=== PATIENT | male | born 1955 | race Caucasian/White ===

== ENCOUNTER 2021-10-14 07:27 | Outpatient (CLI) | payer MEDICARE, MEDICAID, SELFPAY ==
--- NOTE | ~2021-10-14 | MR_ITS ---
EXAMINATION: MR abdomen wo/w con DATE: 10/14/2021 08:42 INDICATION: Liver mass. TECHNIQUE: Magnetic resonance imaging (MRI) of the abdomen was performed without and with 20 mL Multi [place] intravenous contrast. COMPARISON: None. FINDINGS: There is diffuse hepatic steatosis. There are cysts in the liver measuring up to 2.1 cm. The gallblad amber is normal. 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 The spleen and adrenal glands are normal . There are cysts in the kidneys measuring up to 14 mm in the left. There are no pathologically enlar ged lymph nodes. There is no free intraperitoneal fluid. IMPRESSION: 1. Benign cysts in the liver. 2. Diffuse hepatic steatosis. Reviewed, dictated and finalized at location A.
== END 2021-10-14 07:28 | disposition home or self-care (01) ==
PROVIDERS: PCP Family Medicine; Visit Provider Family Medicine
DX: K76.89 Other specified diseases of liver (principal); K76.0 Fatty (change of) liver, not elsewhere classified
CPT/HCPCS: 74183; A9577

== ENCOUNTER 2024-07-20 14:39 | Outpatient (CLI) | payer MEDICARE, MEDICAID, SELFPAY ==
--- NOTE | ~2024-07-20 | US_ITS ---
Left neck ULTRASOUND (Doppler ultrasound interrogation techniques used as needed for this exam.) Ordering provider: Maira Bryant, [employer]ODUCTION MANUFACTURING WORKER History: . submental lymphadenopathy . Comparison: None. FINDINGS/impression: Enlarged lymph node in the palpable area inferior to the left ear measuring 4.4 x 2.4 x 2.5 cm. Other several small superficial lymph nodes are seen. Reviewed, dictated and finalized at location A.
--- OUTSIDE RECORDS SUMMARY | 2024-07-20 15:49 | XMS_ITS | Data Portability ---
Author Organization [facility] [employer], Main Office Address [address] [place] [address] Assessment No assessment recorded. Plan of Treatment Reminders Order Date Submit Date Provider Last Modified By Organization Details Last Modified Time Details Appointments Follow Up 15 2024 09:00A SHAYNE Mcleod Not available Not available Not available Lab opiates, quantitat jean, urine 2024 025 [facility], [address] , [place], [address], 06/10/2024 08:10:44 glycohemo globin, total, blood 2024 025 [facility] (Lab), [address] [place], [address], 03/12/2024 04:16:58 lipid panel, serum 2024 025 [facility] (Lab), [address] [place], [address], 03/12/2024 04:16:58 CMP, serum or plasma 2024 025 [facility] (Lab), [address] [place], [address], 03/12/2024 04:16:58 vitamin B12, serum 2024 025 [facility] (Lab), [address] [place], [address], 03/12/2024 04:16:58 CBC w/ auto diff 2024 025 [facility] (Lab), [address] [place], [address], 03/12/2024 04:16:58 TSH, serum or plasma 2024 025 [facility] (Lab), [address] [place], [address], 03/12/2024 04:16:59 vitamin D, 25-hydrox y, total, serum 2024 025 [facility] (Lab), [address] [place], [address], 03/12/2024 04:16:59 drug of abuse panel, urine 2023 024 [facility] (Lab), [address] [place], [address], 11/12/2023 23:35:39 noninvasi ve colorecta l cancer DNA + occult blood screening , QL, stool 2023 [facility]24 [email or web address]), [address], [address], [place], [address], 09/27/2023 08:11:08 Referral None recorded. Procedures None recorded. Surgeries None recorded. Imaging US, head + neck, soft tissue - Please call patient to schedule. 2024 025 [email or web address] [facility], [address], [place], [address], 07/09/2024 10:13:12 Medication Orders hydrocodo ne 10 mg-acetam inophen 325 mg tablet 2024 025 [facility] #45350, [address] [facility], [place], [place], [id number], 06/03/2024 15:12:17 Mounjaro 5 mg/0.5 mL subcutane ous pen injector 2024 [facility] #21632, [address], [place], [id number], 06/03/2024 15:12:14 alendrona te 70 mg tablet 2024 [facility] #36006, [address], [place], [id number], 03/11/2024 15:38:11 Calcium 600 + D(3) 600 mg-10 mcg (400 unit) tablet 2024 [facility] #48321, [address], [place], [id number], 06/03/2024 14:54:33 gabapenti n 300 mg capsule 2024 [facility] #37770, [address], [place], [id number], 03/11/2024 15:38:12 hydrocodo ne 10 mg-acetam inophen 325 mg tablet 2024 [facility] #72934, [address], [place], [id number], 03/11/2024 16:03:28 OneTouch Ultra Test strips 2024 [facility] #16961, [address], [place], [id number], 03/11/2024 15:38:09 gabapenti n 100 mg capsule 2023 024 [facility] #46218, [address], [place], [id number], 06/03/2024 14:46:14 cyclobenz aprine 10 mg tablet 2023 024 [facility] #63977, [address], [place], [id number], 03/11/2024 15:32:53 hydrocodo ne 10 mg-acetam inophen 325 mg tablet 2023 024 [facility] #86003, [address], [place], [id number], 12/10/2023 11:46:31 meloxicam 7.5 mg tablet 2023 [facility] #43770, [address], [place], [id number], 09/20/2023 10:34:26 Mounjaro 2.5 mg/0.5 mL subcutane ous pen injector 2023 [facility] #48600, [address] [place] [address], [id number], 03/11/2024 15:11:44 [employer]osp[employer] 160 mcg-9mcg- 4.8mcg/ac tuation HFA aerosol inhaler 2023 024 [facility] #37017, [address], [place], [id number], 09/20/2023 10:34:26 Patient TargetsNo targets recorded. Patient InstructionsNo instructions recorded. Reason for Referral None Reported. Results Created Date Observation Date Name Description Value Unit Range Abnormal Flag Note LastModifiedBy Organization Detail LastModifiedTime 09/26/19 24 09/26/2023 COLOG UARD cologuard result reportable NEGATI VE negati ve normal NEGAT JEAN TEST RESUL T. A negat jean Colog uard resul t indic ates a low likel ihood that a color ectal cance r (CRC) or advan jenny adeno ma (sohail omato us polyp s with more advan jenny pre-m align ant featu res) is prese nt. The [facility] that a perso n with a negat jean Colog uard test has a color ectal cance r is less than 1 in 1500 (nega tive predi ctive value >99.9 %) or has an advan jenny adeno ma is less than 5.3% (nega tive predi ctive value 94.7% ). These data are based on a prosp ectiv e cross -sect ional study of 10,00 0 indiv idual s at [facility] risk for color ectal cance r who were scree radha with both Colog uard and colon oscop y. (Zane Dubon et al, N Engl J Med 2014; 370(1 4):12 86-12 97) The niecy l value (refe rence range ) for this assay is negat jean. COLOG UARD RE-SC REEROMI NG RECOM MENDA TION: Perio dic color ectal cance r scree karlie is an impor tant part of preve ntive healt hcare for asymp tomat ic indiv idual s at [place] [facility] risk for color ectal cance r. Follo wing a negat jean Colog uard resul t, the Ameri can Cance r Socie ty and U.S. Multi -Soci ety Task Force scree karlie guide lines recom mend a Colog uard re-sc reeni ng [place] of 3 years . Refer ences : Ameri can Cance r Socie ty Guide line for Color ectal Cance r Scree karlie: https ://sagrario w.can cer.o rg/ca ncer/ colon -rect al-ca ncer/ detec tion- diagn osis- stagi ng/ac s-rec ommen datio ns.ht ml.; Jorje BREAUX, Alejandra lanier CR, Cornel BrothersK, Color ectal Cance r Scree karlie: Recom menda tions for Physi cians and Patie nts from the U.S. Multi -Soci ety Task Force on Color ectal Cance r Screrafia ziegler , Am Deneen oliverog y 2017; 112:1 016-1 030. TEST DESCR IPTIO N: [place] site algor ithmi c frances sis of stool DNA-b ioarjun kers with hemog lobin immun oassa y. Quant itati ve value s of indiv idual bioma rkers are not repor table and are not assoc iated with indiv idual bioma rker resul t refer ence range s. Colog uard is inten ded for color ectal cance r scree karlie of adult s of eithe r sex, 45 years or older , who are [facility] for color ectal cance r (CRC) . Colog uard has been appro opal for use by the U.S. FDA. The perfo rmanc e of Colog uard was estab lishe d in a cross secti onal study of [facility] adult s aged 50-84 . Colog uard perfo rmanc e in patie nts ages 45 to 49 years was estim ated by sub-g roup frances sis of near- age group s. Colon oscop ies perfo rmed for a posit jean resul t may find as the most clini trinh signi toro stephens n: color ectal cance r [4.0% ], advan jenny adeno ma (incl uding sessi le kayli abigail polyp s great er than or equal to 1cm diame ter) [20%] or non- advan jenny adeno ma [31%] ; or no color ectal neopl marcelino [45%] . These estim ates are deriv ed from a prosp ectiv e cross -sect ional scree karlie study of 10,00 0 indiv idual s at [facility] risk for color ectal cance r who were scree radha with both Colog uard and colon oscop y. (Zane Leung al, N Engl J Med 2014; 370(1 4):12 86-12 97.) Colog uard may produ ce a false negat jean or false posit jean resul t (no color ectal cance r or preca ncero us polyp prese nt at colon oscop y follo w up). A negat jean Colog uard test resul t does not guara ntee the absen ce of CRC or advan jenny adeno ma (pre- cance r). The curre nt Colog uard scree [place]arlie [place] is every 3 years . (Amer ican Cance r Socie ty and U.S. Multi -Soci ety Task Force ). Colog uard perfo rmanc e data in a ,00 0 patie nt pivot al study using colon oscop y as the refer ence metho d can be acces sed at the follo wing locat ion: www.e xactl abs.c om/re sulleeanna . Addit ional descr iptio n of the Colog uard test proce ss, warni ngs and preca ution s can be found at www.c bubba josue.c om. Not Available [facility] (Cologuard Orders Only) [address], [place], [address], 09/30/2023 18:32:22 Result Notes None recorded. Problems Name Problem SNOMED Code Status Onset Date Resolution Date Notes Provider Name and Address Organization Details Recorded Time Pain in lower limb 20963513 Active Not Available [facility] 4 04:23:31 Tobacco user 758253156 Active Not Available [facility] 4 04:23:31 Chronic back pain 619297986 Active Not Available [facility] 4 04:23:31 Chronic obstructiv e pulmonary disease 00611124 Active Not Available [facility] 4 04:23:31 Nocturia 070845261 Active Not Available [facility] 4 04:23:31 Constipati on 69817026 Active Not Available [facility] 4 04:23:31 Abdominal pain 84549517 Active Not Available [facility] 4 04:23:31 Dyspnea 649372585 Active Not Available [facility] 4 04:23:31 Impaired exercise tolerance 514833641 Active Not Available [facility] 4 04:23:31 Low back pain 451968434 Active Not Available [facility] 4 04:23:31 Type 2 diabetes mellitus without complicati on 960809850 Active 2021 Not Available [facility] 4 04:23:31 Blood in urine 51527508 Active Not Available [facility] 4 04:23:31 Vitamin D deficiency 05383418 Active Not Available [facility] 4 04:23:31 Depressive disorder 09056013 Active Not Available [facility] 4 04:23:31 Ventral incisional hernia 224468382 Active Not Available [facility] 4 04:23:31 History of calculus of kidney 243187972 Active Not Available [facility] 4 04:23:31 Foot pain 34941019 Active Not Available [facility] 4 04:23:31 Hyperlipid emia 41200822 Active Not Available [facility] 4 04:23:31 Hypercalci uria 50232217 Active Not Available [facility] 4 04:23:31 Urethral stricture 28399309 Active Not Available [facility] 4 04:23:31 Degenerati on of interverte bral disc 74080670 Active Not Available [facility] 4 04:23:31 Fatigue 51498846 Active Not Available [facility] 4 04:23:31 Urolithias is 38570643 Active Not Available [facility] 4 04:23:31 Diabetes mellitus 91350052 Completed 202203/11/2024 SHAYNE Bach [address], [address], [place], [address] , [employer] 5 15:27:13 Skin lesion 36135874 Active 2022 Not Available [facility] 4 04:23:31 Vertigo 731513585 Active 2023 Cortney Drew MD [address], [address], [place], [address] , [employer] 4 10:40:53 Spinal stenosis of lumbar region 11602960 Active 2023 SHAYNE Bach [address] [facility], [address] [place] [address], [place], [address] , [employer] 4 10:22:04 Urge incontinen ce of urine 44441629 Active 2023 SHAYNE Bach [address] [facility], [place] [place] [address], [place], [address] , [employer] [facility] 4 12:59:03 Osteoporos is 00714473 Active 2024 ABDULLAHI BachP [address] [facility], [place] [place] [address], [place], [address] , [employer] 5 15:36:37 Submental lymphadeno brandyn 225307321 Active 2024 SHAYNE Bach [address] [facility], [address] [place] [address], [place], [address] , [employer] 5 15:03:59 Notes:Medical History: Nicot ine dependence Anxiety/Depression Rhinitis Obesity Bilateral PE on Xarelto 04/04 Mild RVE Hypertension with LVH EF 45% Mixed hyperlipidemia T2DM Urolithiasis from hypercalciuria Urethral stricture BPH Vit D deficiency Low back pain PVD Some problems listed in Documents: #[id number], #[id number], #[id number] could not be added to this patient's chart. Please review these documents and add these problems to the patient's chart manually as needed. Problem Notes None recorded. Procedures Surgical History Date Name Laterality Status Provider Name and Address Organization Details Recorded Time 10/09/2022 Shave Biopsy completed Cortney Drew MD [address] [facility], [address] [place] [address], [place], [address], [employer] 10/09/2022 10:24:24 Imaging Results None recorded. Procedure Notes None recorded. Medical Equipment None Reported. Allergies No known drug allergies Medications Name Sig Start Date Stop Date Status Note LastModified by Organization Details LastModified Time cyclobenzap rine 10 mg tablet TAKE 1 TABLET BY MOUTH THREE TIMES DAILY NEEDED 03/11 completed Not Available Not Available Not Available atorvastati n 40 mg tablet TAKE 1 TABLET BY MOUTH EVERY DAY active Not Available Not Available No t Available metformin 500 mg tablet 2 po bid with food 03/11 completed Not Available Not Available Not Available Colace 100 mg capsule Take 1 capsule twice a day by oral route. 09/29 completed Not Available Not Available Not Available doxycycline hyclate 100 mg capsule Take 1 capsule twice a day by oral route for 7 days. active Not Available Not Available No t Available citalopram 40 mg tablet Take 1 tablet every day by oral route for 30 days. 10/08 completed Not Available Not Available Not Available azithromyci n 250 mg tablet TAKE 2 TABLETS (500 MG) BY ORAL ROUTE ONCE DAILY FOR 1 DAY THEN 1 TABLET (250 MG) BY ORAL ROUTE ONCE DAILY FOR 4 DAYS active Not Available Not Available No t Available hydrocodone 5 mg-acetamin ophen 325 mg tablet TAKE 2 TABLETS BY MOUTH EVERY 8 HOURS NEEDED 04/14 completed Not Available Not Available Not Available senna 8.6 mg tablet Take 2 tablets every day by oral route. 09/22 completed Not Available Not Available Not Available glipizide ER 10 mg tablet, extended release 24 hr TAKE 1 TABLET BY MOUTH EVERY DAY active Not Available Not Available No t Available prednisone 20 mg tablet 3 po qday x 3 days then 2 po qday x 3 days then 1 po qday x 3 days then 1/2 po qday x 3 days 02/20 completed Not Available Not Available Not Available alendronate 70 mg tablet TAKE 1 TABLET BY MOUTH EVERY WEEK DIRECTED active Not Available Not Available No t Available dexamethaso ne 6 mg tablet TAKE 1 TABLET BY MOUTH EVERY DAY 04/19 completed Not Available Not Available Not Available hydroxyzine HCl 50 mg tablet TAKE 1 TABLET BY MOUTH EVERY NIGHT AT BEDTIME NEEDED FOR INSOMNIA 09/19 completed Not Available Not Available Not Available ciprofloxac in 500 mg tablet Take 1 tablet every 12 hours by oral route for 7 days. active Not Available Not Available No t Available hydrocodone 10 mg-acetamin ophen 325 mg tablet TAKE 1 TABLET BY MOUTH EVERY 8 HOURS NEEDED. MUST LAST 30 DAYS. active Not Available Not Available No t Available aspirin 81 mg tablet,lashell yed release Take 1 tablet every day by oral route. 09/19 completed Not Available Not Available Not Available meloxicam 7.5 mg tablet TAKE 1 TABLET BY MOUTH TWICE DAILY NEEDED FOR 30 DAYS active Not Available Not Available No t Available hydrocodone 10 mg-acetamin ophen 500 mg tablet TAKE ONE TABLET BY MOUTH EVERY 6 HOURS NEEDED FOR PAIN active Not Available Not Available No t Available citalopram 20 mg tablet Take 1 tablet every day by oral route. 2012 active Not Available Not Available Not Avai lable oxycodone-a cetaminophe n 10 mg-325 mg tablet TAKE 1 TABLET BY MOUTH EVERY 6 HOURS 04/19 completed Not Available Not Available Not Available tamsulosin 0.4 mg capsule TAKE 1 CAPSULE BY MOUTH EVERY DAY active Not Available Not Available No t Available [employer] ([facility]) Ultra Test strips USE 1 EACH DIRECTED TO TEST 3-4 TIMES DAILY. active Not Available Not Available No t Available meclizine 25 mg tablet TAKE 1 TABLET BY MOUTH THREE TIMES DAILY NEEDED active Not Available Not Available No t Available naproxen sodium 550 mg tablet TK 1 T PO Q 12 H PRN 09/19 completed Not Available Not Available Not Available ranitidine 150 mg tablet Take 1 tablet twice a day by oral route. 12/31 completed Not Available Not Available Not Available warfarin 5 mg tablet TAKE 1 TABLET BY MOUTH EVERY EVENING.. .INR ON 03/23 completed Not Available Not Available Not Available losartan 25 mg tablet TAKE 1 TABLET BY MOUTH DAILY active Not Available Not Available No t Available gabapentin 300 mg capsule TAKE 1 CAPSULE BY MOUTH TWICE DAILY active Not Available Not Available No t Available codeine 10 mg-guaifene sin 100 mg/5 mL oral liquid Take 10 mL every 4 hours by oral route as needed. active Not Available Not Available No t Available gabapentin 100 mg capsule TAKE 1 CAPSULE BY MOUTH EVERY DAY AT BEDTIME 06/03 completed Not Available Not Available Not Available ergocalcife rol (vitamin D2) 1,250 mcg (50,000 unit) capsule Take 1 capsule every week by oral route. 12/31 completed Not Available Not Available Not Available diazepam 10 mg tablet 1 po x 1 45 minutes prior to MRI active Not Available Not Available No t Available albuterol sulfate HFA 90 mcg/actuati on aerosol inhaler INHALE 2 PUFFS BY MOUTH EVERY 4 TO 6 HOURS NEEDED active Not Available Not Available No t Available Cipro 250 mg tablet Take 1 tablet every 12 hours by oral route for 7 days. 09/29 completed Not Available Not Available Not Available fluticasone propionate 50 mcg/actuati on nasal spray,suspe nsion 2 sprays each nostril qday 09/19 completed Not Available Not Available Not Available metformin ER 500 mg tablet,exte nded release 24 hr TAKE 2 TABLETS BY MOUTH TWICE DAILY active Not Available Not Available No t Available sertraline 50 mg tablet Take 1 tablet every day by oral route. 01/01 completed Not Available Not Available Not Available diazepam 5 mg tablet TK 1 T PO BID PRN 07/30 completed Not Available Not Available Not Available enoxaparin 120 mg/0.8 mL subcutaneou s syringe INJECT 120 MG UNDER THE SKIN TWICE DAILY 04/19 completed Not Available Not Available Not Available Spiriva with HandiHaler 18 mcg and inhalation capsules Inhale 1 capsule every day by inhalatio n route. 09/29 completed Not Available Not Available Not Available Atrovent HFA 17 mcg/actuati on aerosol inhaler Inhale 2 puffs 4 times a day by inhalatio n route. 01/01 completed Not Available Not Available Not Available Anaprox DS TAKE 1 BID PRN 2012 active Not Available Not Available Not Avai lable calcium 600 mg (as carbonate)- vitamin D3 10 mcg (400 unit) tablet TAKE 1 TABLET BY MOUTH EVERY DAY DIRECTED 06/03 completed Not Available Not Available Not Available Fish Oil 1,000 mg capsule 1 BID 09/29 completed Not Available Not Available Not Available Symbicort 160 mcg-4.5 mcg/actuati on HFA aerosol inhaler INHALE 2 PUFFS BY MOUTH TWICE DAILY active Not Available Not Available No t Available Xarelto 20 mg tablet TAKE 1 TABLET BY MOUTH EVERY DAY active Not Available Not Available No t Available OneTouch Ultra2 Meter USE TO TEST BLOOD SUGAR DIRECTED. active Not Available Not Available No t Available OneTouch Delica Plus Lancet 33 gauge USE TO TEST BLOOD SUGAR ONCE DAILY active Not Available Not Available No t Available OneTouch Delica Plus Lancet 30 gauge USE TO TEST BLOOD SUGAR ONCE EVERY DAY active Not Available Not Available No t Available Ashu Aerosphere 160 mcg-9mcg-4. 8mcg/actuat ion HFA aerosol inhaler Inhale 2 puffs twice a day by inhalatio n route as directed for 30 days. active Not Available Not Available No t Available Ozempic 1 mg/dose (4 mg/3 mL) subcutaneou s pen injector INJECT 1 MG UNDER THE SKIN ONCE A WEEK 12/24 completed Not Available Not Available Not Available Mounjaro 7.5 mg/0.5 mL subcutaneou s pen injector ADMINISTE R 7.5 MG UNDER THE SKIN EVERY WEEK 09/19 completed Not Available Not Available Not Available Mounjaro 5 mg/0.5 mL subcutaneou s pen injector ADMINISTE R 5 MG UNDER THE SKIN WEEKLY DIRECTED 2024 active Not Available Not Available Not Avai lable Mounjaro 10 mg/0.5 mL subcutaneou s pen injector ADMINISTE R 10 MG UNDER THE SKIN EVERY WEEK 09/19 completed Not Available Not Available Not Available Mounjaro 12.5 mg/0.5 mL subcutaneou s pen injector 0.5 ml sc qweek 05/21 completed Not Available Not Available Not Available Mounjaro 2.5 mg/0.5 mL subcutaneou s pen injector ADMINISTE R 2.5 MG UNDER THE SKIN EVERY WEEK DIRECTED 03/11 completed Not Available Not Available Not Available Ozempic 0.25 mg or 0.5 mg (2 mg/3 mL) subcutaneou s pen injector INJECT 0.25 UNDER THE SKIN ONE DAY A WEEK 02/20 completed Not Available Not Available Not Available Vitals Date Recorded Body height Body mass index (BMI) Body weight Body temperature Heart rate Respiratory rate Oxygen saturation Oxygen saturation in Arterial blood by Pulse oximetry Systolic blood pressure Diastolic blood pressure Provider Name and Address Organization Details Last Updated DateTime 5 198.12 cm 36.5 kg/m2 537942. 19 g 97.7 [degF] 97 /min 20 /min 97 % 97 % 138 mm[Hg] 78 mm[Hg] Deneen Rangel RN [place] [facility] [employer] 5 15:14:39 Date Recorded Body height Body mass index (BMI) Body weight Body temperature Heart rate Oxygen saturation Oxygen saturation in Arterial blood by Pulse oximetry Respiratory rate Systolic blood pressure Diastolic blood pressure Provider Name and Address Organization Details Last Updated DateTime 5 198.12 cm 37 kg/m2 116407. 71 g 97.2 [degF] 89 /min 95 % 95 % 24 /min 108 mm[Hg] 70 mm[Hg] Deneen Rangel RN [facility] [employer] [facility] 5 14:35:05 Date Recorded Body height Body mass index (BMI) Body weight Body temperature Respiratory rate Oxygen saturation Oxygen saturation in Arterial blood by Pulse oximetry Heart rate Systolic blood pressure Diastolic blood pressure Provider Name and Address Organization Details Last Updated DateTime 4 198.12 cm 36.1 kg/m2 094042. 62 g 97.5 [degF] 24 /min 95 % 95 % 94 /min 118 mm[Hg] 78 mm[Hg] Deneen Rangel RN [facility] [employer] [facility] 4 09:49:06 Date Recorded Body height Body mass index (BMI) Body weight Body temperature Heart rate Respiratory rate Oxygen saturation Oxygen saturation in Arterial blood by Pulse oximetry Systolic blood pressure Diastolic blood pressure Provider Name and Address Organization Details Last Updated DateTime 4 198.12 cm 36.9 kg/m2 992123. 72 g 98.2 [degF] 93 /min 20 /min 94 % 94 % 126 mm[Hg] 78 mm[Hg] Deneen Rangel RN [facility] [employer] [facility] 4 11:18:24 Social History Question Answer Notes LastModified by Organizat ion Details LastModified Time Tobacco Smoking Status Former Smoker stopped 2020 Not Available [employer] 04/11/2022 09:12:51 Do You Have An Advance Directive? No Information not available 09/20/2023 Are You Blind Or Do You Have Difficulty Seeing? Yes Wears Glasses Information not available 09/20/2023 Is Blood Transfusion Acceptable In An Emergency? Yes Information not available 09/20/2023 What Is Your Code Status? Full Code Information not available 09/20/2023 In The 14 Days Before Symptom Onset, Have You Had Close Contact With A Laboratory-confir med COVID-19 While That Case Was Ill? No [id number] Information not available 04/11/2022 In The 14 Days Before Symptom Onset, Have You Had Close Contact With A Person Who Is Under Investigation For COVID-19 While That Person Was Ill? No [id number] Information not available 04/11/2022 Are You Deaf Or Do You Have Serious Difficulty Hearing? Yes [place] Information not available 09/20/2023 What Type Of Diet Are You Following? REGULAR [id number] Information not available 04/11/2022 Have There Been Any Changes To Your Family Or Social Situation? No Information no t available 06/03/2024 When Did You Quit Smoking? 1-5yearssin celastcigar ette [id number] Information not available 04/11/2022 Are There Any Guns Present In Your Home? No Information not available 09/20/2023 Do You Use Insect Repellent Routinely? No Information not available 09/20/2023 Where Do You Live? Trailer Information not available 09/20/2023 Do You Have A Medical Power Of Manager Chemical? No Information not available 09/20/2023 How Many Children Do You Have? 4 Information not available 09/20/2023 Do You Have Any Pets? Yes Information not available 09/20/2023 What Is Your Relationship Status? Information not available 09/20/2023 Do You Use Your Seat Belt Or Car Seat Routinely? Yes Information not available 09/20/2023 Do You Have Smoke And Carbon Monoxide Detectors In Your Home? Yes Information not available 09/20/2023 Are You Passively Exposed To Smoke? No Information no t available 09/20/2023 Are There Any Smokers In Your House? No Information not available 09/20/2023 Do You Participate In Social Media? No Information not available 09/20/2023 Do You Use Sunscreen Routinely? No Information not available 09/20/2023 Has Tobacco Cessation Counseling Been Provided? No [id number] Information not available 04/11/2022 Have You Recently Traveled Abroad? No Information not available 09/20/2023 Do You Have Difficulty Walking Or Climbing Stairs? Yes Back Information not available 09/20/2023 Sex: Unknown Functional Status Question Answer Note LastModified by Organizat ion Details LastModified Time Do you use any illicit or recreational drugs? No [id number] Information not available 04/11/2022 Do you or have you ever used any other forms of tobacco or nicotine? No [id number] Information not available 04/11/2022 What is your level of alcohol consumption? None [id number] Information not available 04/11/2022 Are you currently employed? No retired Information not available 09/20/2023 Do you have transportation difficulties? No Information not available 09/20/2023 Are you able to walk? YESWOREST trouble walking due to back pain Information not available 09/20/2023 Do you have difficulty doing errands alone? No Information not available 09/20/2023 Are you able to care for yourself? Yes Information n ot available 09/20/2023 Do you have difficulty dressing or bathing? No Information not available 09/20/2023 What is your exercise level? None Information not available 06/03/2024 Mental Status Question Answer Note LastModified by Organizat ion Details LastModified Time Do you feel stressed (tense, restless, nervous, or anxious, or unable to sleep at night)? [id number] Information not available 09/20/2023 Do you have difficulty concentrating, remembering or making decisions? No Information no t available 09/20/2023 Family History Relationship Description Onset Age of this Age Resolved Age Notes LastModified by Organization Details LastModified Time Mother Myocardial infarction Not available 09/19 09:45:41 Medical History Condition Response DIABETES, TYPE Y ALLERGIES/HAYFEVER Y HEARTBURN / REFLUX Y MUSCLE,JOINT OR BONE PROBLEMS Y HIGH CHOLESTEROL / HYPERLIPIDEMIA Y ASTHMA Y BACK / NECK PROBLEMS Y PAIN Y NEUROPATHY Y HYPERTENSION Y ANXIETY DISORDER Y OBESITY Y Immunizations Vaccine Type Date Status Note Provider Nam e and Address Organization Details Recorded Time Influenza, high-dose, quadrivalent, PF 11/12/2022 completed Chelo Jimenez RN [facility] Sample[facility] 11/12/2022 11:21:00 Influenza, high-dose, quadrivalent, PF 11/13/2021 completed Not Available [facility] 4 04:23:32 Influenza, split virus, quadrivalent, PF 12/31/2013 completed Not Available [facility] 4 04:23:32 Past Encounters Encounter ID Performer Location Encounter Start Date Encounter Closed Date Diagnosis/Indication Diagnosis SNOMED-CT Code Diagnosis ICD10 Code Diagnosis Note [id number] DANIELLE Chaidez [facility] [place] [address] [facility] [address] [place] [address] 03/22/2021 00:00:00 03/22/2021 10:58:16 [id number] DANIELLE Chaidez [facility] Primary [facility] [place] [address] [facility] [address] [place] [address] 04/04/2021 00:00:00 04/04/2021 14:54:02 [id number] Cortney Drew MD [facility] Primary [facility] [place] [address] [facility] [address] [place] [address] 04/19/2021 00:00:00 05/03/2021 15:41:18 [id number] Cortney Drew MD [facility] Primary [facility] [place] [address] [facility] [address] [place] [address] 05/17/2021 00:00:00 06/09/2021 11:38:22 [id number] Cortney Drew MD [facility] Primary [facility] [place] [address] [facility] [address] [place] [address] 06/19/2021 00:00:00 06/19/2021 15:02:34 [id number] Cortney Drew MD [facility] Primary [facility] [place] [address] [facility] [address] [place] [address] 07/27/2021 00:00:00 08/10/2021 09:35:54 [id number] Cortney Drew MD [facility] Primary [facility] [place] [address] [place] [address] 08/29/2021 00:00:00 09/04/2021 11:07:55 [id number] Cortney Drew MD [facility] Primary [facility] [place] [address] [place] [address] 10/03/2021 00:00:00 10/11/2021 09:11:03 [id number] Cortney Drew MD [facility] Primary [facility] [place] [address] [place] [address] 11/13/2021 00:00:00 11/13/2021 13:12:55 [id number] Cortney Drew MD [facility] Primary Care [place] [address] [place] [address] 12/11/2021 00:00:00 12/11/2021 12:50:34 [id number] Cortney Drew MD [facility] Primary [facility] [place] [address] [place] [address] 01/23/2022 00:00:00 01/23/2022 09:31:25 [id number] Cortney Drew MD [facility] Primary [facility] [place] [address] [place] [address] 05/30/2022 15:42:16 05/30/2022 16:21:27 Hyperlipidemia 30489313 E78.5 Z79.899 Type 2 derick betes mellitus without complication 200231298 E11.9 Vitamin D deficiency 347 29670 E55.9 Degenerati on of intervertebral disc 59826730 M51.9 increase hydrocodon e/apap 10/325 mg po tid Screening for malignant neoplasm of prostate 342372301 Z12.5 [id number] Cortney Drew MD [facility] Primary Care [place] [address] [place] [address] 08/29/2022 14:53:15 08/29/2022 15:09:26 Hyperlipidemia 31976304 E78.5 Z79.899 Type 2 derick betes mellitus without complication 885404909 E11.9 last a1c was stable at 7.3, but has gained 16 poundsplan an injectable medication like ozempic if not at goal to help with a1c and weight Vitamin D deficiency 347 03051 E55.9 Degenerati on of intervertebral disc 52991095 M51.9 stable on hydrocodon e/apap 10/325 mg po tidUDS todayPt understand s this medication has risk for abuse/depe ndence and agrees to take it only as prescribed and to guard from loss/theft [id number] Cortney Drew MD [facility] Primary Care [facility] [place] [address] [facility] [address] [place] [address] 10/09/2022 09:48:31 10/09/2022 10:22:04 Diabetes mellitus 88190890 E11.9 increase ozempic 0.5 mg dailyf/u in 4 weeks Skin lesion 74730841 L98 .9 irritated skin lesion, removal recommende dpt tolerated procedure well [id number] Cortney Drew MD [facility] Primary Care [facility] [place] [address] [facility] [address] [place] [address] 11/12/2022 09:41:16 11/12/2022 11:23:52 Administration of influenza vaccine 57038130 Z23 Chronic ob structive pulmonary disease 73827169 J44.9 Diabetes mellitus 611042 09 E11.9 improvingi ncrease ozempic 1 mg dailyd/c glipizide to avoid hypoglycem iaf/u in 4 weeks [id number] Cortney Drew MD [facility] Primary Care [facility] [place] [address] [facility] [address] [place] [address] 12/24/2022 12:26:53 12/24/2022 12:55:31 Diabetes mellitus 20415982 E11.9 improving but he d/c ozempic, willing to restart at 0.25 mg sc qweekcall if any new sob when restarting plan to titrate back up to 1 mg over the next 2 monthsf/u in 4 weeks Chronic ob structive pulmonary disease 86885080 J44.9 Pulmonary referral givenPredn isone taper with foodf/u in 4 weeks or sooner [id number] Cortney Drew MD [facility] Primary Care [facility] [address] [facility] [address] [place] [address] 02/20/2023 10:46:39 02/20/2023 13:52:47 Hyperlipidemia 04269743 E78.5 Z79.899 Type 2 derick betes mellitus without complication 853307969 E11.9 uncertain controlwas on ozempic up to 1 mg but he is not sure how well it worked for himcheck a1c, he is open to restarting ozempic or mounjaro pending a1c Vitamin D deficiency 347 31625 E55.9 [id number] Cortney Drew MD [facility] Primary Care [facility] [address] [facility] [address] [place] [address] 05/22/2023 10:44:35 05/22/2023 11:15:05 Type 2 diabetes mellitus without complication 359193396 E11.9 uncertain controlwas on ozempic up to 1 mg but he is not sure how well it worked for himcheck a1c, he is open to restarting ozempic or mounjaro pending a1c update 05/22/23: doing well on mounjaro 10 mg sc qweek, could not get 12.5 mg dosage and sugars are doing well on current dose Hyperlipidemia 27170374 E78.5 Z79.899 Vitamin D deficiency 347 61311 E55.9 Screening for malignant neoplasm of prostate 247168026 Z12.5 [id number] Cortney Drew MD [facility] Primary Care [facility] [address] [facility] [address] [place] [address] 07/02/2023 10:13:42 07/02/2023 10:48:51 [id number] YONATHAN Lomas [facility] Primary Care [facility] [address] [facility] [address] [place] [address] 08/07/2023 10:40:21 08/07/2023 10:57:12 [id number] Bob Porter MD [address] [address] 09/20/2023 09:34:59 09/20/2023 10:50:20 Chronic obstructive pulmonary disease 73492302 J44.9 Spinal bill nosis of lumbar region 61575005 M48.061 Screening for malignant neoplasm of colon 528487322 Z12.11 Diabetes mellitus 428133 09 E11.9 [id number] Bob Porter MD [address] [address] 11/12/2023 14:47:39 11/12/2023 16:04:45 Chronic back pain 737464166 G89.29 UDS and CSA UTDIL PMD correct [id number] Bob Porter MD [address] [address] 12/10/2023 11:00:16 12/10/2023 12:16:03 Degeneration of intervertebral disc 25968968 M51.9 UDS and CSA UTDIL PMD correctEnc ouraged to add Tylenol 1,000 mg TIDEncoura ge to ice and heat and toleratedW ould like to decrease Hydrocodon e 10-acetami nophen 325Pt declines surgical interventi ons and steroid injections [id number] Bob Porter MD [address] [address] 03/11/2024 14:49:25 03/11/2024 15:50:58 Type 2 diabetes mellitus without complication 261217328 E11.9 Admits he takes metformin based on blood glucose readings. Will sometimes add a glipizide 10 mg if his blood sugars are too highIs taking Mounjaro 5 mg, does not want to increase Hyperlipidemia 77265246 E78.5 Z79.899 controlled with atorvastat in Fatigue 87565167 R53.83 Degenerati on of intervertebral disc 97793578 M51.9 UDS and CSA UTDIL PMD correctEnc ouraged to add Tylenol 1,000 mg TIDEncoura ge to ice and heat and toleratedW ould like to decrease Hydrocodon e 10-acetami nophen 325Pt declines surgical interventi ons and steroid injections Osteoporosis 61290906 M8 1.0 Recent T-score -2.68 [id number] SHAYNE Bach [facility] [place] [address] [place] [address] 06/03/2024 14:22:24 06/03/2024 15:16:02 Type 2 diabetes mellitus without complication 085159595 E11.9 Admits he takes metformin based on blood glucose readings. Will sometimes add a glipizide 10 mg if his blood sugars are too highIs taking Mounjaro 5 mg, does not want to increase Degenerati on of intervertebral disc 52222782 M51.9 UDS and CSA UTDIL PMD correctEnc ouraged to add Tylenol 1,000 mg TIDEncoura ge to ice and heat and toleratedW ould like to decrease Hydrocodon e 10-acetami nophen 325Pt declines surgical interventi ons and steroid injections Submental lymphadenopathy 728873619 R59.0 7x4 cm, rubbery, mobile. Taller than wide Health Concerns Section Related Observation LastModified by Organization Detai ls LastModified Time None Recorded Concern Status LastModified by Organization Details LastModified Time None Recorded Advance Directives Directive N: Payers Encounter Date Sequence Insurance Name Policy Number Policy Forbes Covered Member ID Forbes Member ID Guarantor Name 09/20/2023 1 [facility] (MEDICARE REPLACEMENT/A DVANTAGE - PPO) [id number] Paolo Long [id number] Paolo Long 11/12/2023 1 [facility] (MEDICARE REPLACEMENT/A DVANTAGE - PPO) [id number] Paolo Long [id number] Paolo Long 12/10/2023 1 [facility] (MEDICARE REPLACEMENT/A DVANTAGE - PPO) [id number] Paolo Long [id number] Paolo Long 03/11/2024 1 [facility] (MEDICARE REPLACEMENT/A DVANTAGE - PPO) [id number] Paolo Long [id number] Paolo Long 06/03/2024 1 [facility] (MEDICARE REPLACEMENT/A DVANTAGE - PPO) [id number] Paolo Long [id number] Paolo Long 06/03/2024 2 [place] [facility] Paolo Long [id number] Paolo Long Notes Date Note Type Note Provider Name and Address Organization Details Recorded Time 09/20/2023 text/html Paolo Long is a 67 year old male patient here today to establish care. He was previously under the care of Dr. Drew.He would not like to see [place] anymore. His past medical history is significant for COPD. He utilized Symbicort daily and albuterol PRN. States his lungs are not working to their full potential. This worsened when he had COVID. Hyperlipidemia managed by atorvastatin 40 mg HS. Denies leg cramping Type 2 DM managed with Metformin 1000 mg PO BID, had to stop Mounjaro 10 mg due to GI upset. States he did not have this upset on lower doses, willing to try again and stay on a lower dose, max 5mg. Hypertension managed with losartan 25 mg daily. BP on arrival 118/78. History of OMAR PE 04/2021, utilizes Xarelto. Degenerative disc disease and chronic pain. He is taking hydrocodone 10 mg- acetaminophen 325 mg TID. States had a fall on 04/14/2023 and has had severe pain since. Has been seeing chiropractor with minimal relief. CT shows numerous osteophytes and multiple level stenosis. Patient does not want surgeries and is hesitant to try steroids. Saw pain management in [place] and states they only offered the shots. Flu shot: 3COVID vaccines: declinesTdap: believes within the last 10yearColonoscopy: cologuard orderedPSA: 0.42 SHAYNE Bach [address] [facility] [facility] [address], [place], [address], [facility] 09/20/2023 10:47:31 12/10/2023 text/html Paolo Long is a 68 year old male patient here today for multiple complaints. He has L4-L5 chronic pain. I sent a referral to pain management, patient went to see them and they told him they can only offer steroid shots and he cannot have pain medications. In the past steroid shots have been ineffective for him, he is okay with alternative pain management but does not want steroid injections. Interventional Pain Management.Has been seeing chiropractic as well, states it is not working.Has also been seeing Dr. Esparza ([facility]) in [place], had imaging and had MRI scheduled for 12/16/23.Has fears related to spinal surgeries. States he cannot move if he skips a Hydrocodone-acetamin ophen. With the medication the pain is tolerable, but he still has difficulty walking and movement. SHAYNE Bach [address] [facility], [place], [address], [employer] 12/10/2023 12:11:18 03/11/2024 text/html Paolo Long is a 68 year old male patient here today for a 3 month FU He has L4-L5 chronic pain. I sent a referral to pain management, patient went to see them and they told him they can only offer steroid shots and he cannot have pain medications. In the past steroid shots have been ineffective for him, he is okay with alternative pain management but does not want steroid injections. Interventional Pain Management.Has been seeing chiropractic as well, states it is not working.Has also been seeing Dr. Esparza ([facility]) in [place], had imaging and had MRI scheduled for 12/16/23.Has fears related to spinal surgeries. States he cannot move if he skips a Hydrocodone-acetamin ophen. With the medication the pain is tolerable, but he still has difficulty walking and movement. States he has lost 15 pounds since starting Mounjaro. States sugar levels have been a little more crazy lately. Would like more glucose strips to test more frequently. SHAYNE [facility] [address], [address], [place], [address], [employer] [facility] [employer] 03/11/2024 16:15:38 06/03/2024 text/html Paolo Long is a 68 year old male patient here today for a 3 month FU He is taking hydrocodone-acetamin ophen 10/325 and gabapentin 300 mg at bedtime.He has L4-L5 chronic pain. I sent a referral to pain management, patient went to see them and they told him they can only offer steroid shots and he cannot have pain medications. In the past steroid shots have been ineffective for him, he is okay with alternative pain management but does not want steroid injections. Interventional Pain Management.Has been seeing chiropractic as well, states it is not working.Has also been seeing Dr. Esparza ([facility]) in [place], had imaging and had MRI scheduled for 12/16/23.Has fears related to spinal surgeries. States he cannot move if he skips a Hydrocodone-acetamin ophen. With the medication the pain is tolerable, but he still has difficulty walking and movement. States he has lost 15 pounds since starting Mounjaro. States sugar levels have been a little more crazy lately. Would like more glucose strips to test more frequently. Concerns with a mass on the left side of his jaw, this has been present approx 3 months. Unsure of sickness. He states it does wax and wane slightly. Is not tender Maira Bryant, SHAYNE [address] [facility], [address], [place], [address], [facility] 06/03/2024 15:18:43
--- OUTSIDE RECORDS SUMMARY | 2024-07-20 15:49 | XMS_ITS | CONTINUITY OF CARE DOCUMENT ---
Author Name miguel rivera Address Unknown Organization [facility] Address [address] [place] [address] [address] [place] [address] Phone [phone] Care Team Providers Care Building Maintenance Technician Name Role Phone Wagner Morris MD Unavailable [phone] RENETTA PAREDES MD Unavailable RENETTA PAREDES MD Unavailable PROBLEMS Condition Status Date Provider Notes Cardiology examination active Tonja boycemekrissy Shortness of breath active Tonja Najera eyer Tobacco use quit active Tonja Lowery r Pulmonary embolism active Tonja Owen krissy DVT active Tonja Mauro Cardiomyopathy - EF 45% 08/02 active Syd Mauro Leg pain, bilateral active Dwain Rubin Personal history of COVID-19 active Dwain Rubin ENCOUNTERS Date Type Provider Location Encounter Diag nosis - In-person encounter Office Visit Wagner Morris MD [facility] Leg pain, bilateralPersonal history of COVID-19 - In-person encounter Office Visit Wagner Morris MD [facility] - In-person encounter Office Visit Wagner Morris MD [facility] Cardiomyopathy - EF 45% 08/02 - In-person encounter Office Visit Wagner Morris MD [facility] Cardiology examinationShortness of breathTobacco use quitPulmonary embolismDVT VITAL SIGNS Date Observation Value Provider Body Mass Index (Ratio) 40.16 kg/m2 Grah molly Caryn blood pressure, diastolic 84 mm[Hg] Li nkLogic blood pressure, systolic 137 mm[Hg] Mili kLogic blood pressure, cuff size large Ja rret blood pressure, diastolic 84 mm[Hg] Ja rret blood pressure, systolic 137 mm[Hg] Jar ret pulse rate 89 /min Marcelino y respiratory rate E&M 12 /min Marcelino oxygen saturation, oximetry 96 % weight E&M 330 [lb_av] Marcelino y height E&M 76 [in_i] Marcelino y Body Mass Index (Ratio) 38.46 kg/m2 Adriane mark Mauro blood pressure, cuff size large Ke rri Gruenenf blood pressure, diastolic 94 mm[Hg] Ke rri Gruenenfeld blood pressure, systolic 123 mm[Hg] Akiko ri Gianer oxygen saturation, oximetry 97 % Lisbet Domonique respiratory rate E&M 16 /min Lisbet G estephanieenenfelder pulse rate 96 /min Lisbet Gruenenfe lder weight E&M 316 [lb_av] Lisbte Gruenenfe lder height E&M 76 [in_i] Lisbet Gruenenfe lder Body Mass Index (Ratio) 38.46 kg/m2 Adriane Mauro blood pressure, cuff size large Annie Schmid blood pressure, diastolic 78 mm[Hg] Nc luis [place] blood pressure, systolic 134 mm[Hg] [facility] helle [place] oxygen saturation, oximetry 94 % Genoveva Schmid respiratory rate E&M 16 /min Jana Schmid pulse rate 96 /min Genoveva lanier weight E&M 316 [lb_av] Genoveva lanier height E&M 76 [in_i] Genoveva lanier Body Mass Index (Ratio) 37.61 kg/m2 Adriane mark [place] blood pressure, diastolic 80 mm[Hg] Li nkLogic blood pressure, systolic 140 mm[Hg] Mili kLogic blood pressure, cuff size [facility] [place] [facility], diastolic 80 mm[Hg] Nc luis Schmid blood pressure, systolic 140 mm[Hg] [facility] helastrid [place] oxygen saturation, oximetry 94 % Genoveav Schmid respiratory rate E&M 18 /min Jana Schmid pulse rate 101 /min Genoveva lanier height E&M 76 [in_i] Genoveva lanier weight E&M 309 [lb_av] Genoveva lanier ALLERGIES No Known Drug Allergies HISTORY OF MEDICATION USE Medication Status Instructions Dates Provider Indications Com ments Xarelto 20 mg tablet completed Take 1 tablet by mouth once a day TAKE 1 TABLET BY MOUTH DAILY - 2 Wagner Morris MD warfarin 5 mg tablet completed TAKE 1 TABLET BY MOUTH EVERY EVENING...INR ON 03/23 - 7 Genoveva Schmid albuterol sulfate 90 mcg/actuation HFA aerosol inhaler active INHALE 2 PUFFS BY MOUTH EVERY 4 TO 6 HOURS NEEDED Genoveva Schmid hydrocodone-aceta minophen 5-325 mg tablet active TAKE 1 TABLET BY MOUTH EVERY 6 TO 8 HOURS FOR 7 DAYS NEEDED Genoveva Schmid dexamethasone 6 mg tablet active TAKE 1 TABLET BY MOUTH EVERY DAY Genoveva Schmid Symbicort 160-4.5 mcg/actuation HFA aerosol inhaler active INHALE 2 PUFFS BY MOUTH TWICE DAILY Genoveva Schmid enoxaparin 120 mg/0.8 mL syringe completed INJECT 120 MG UNDER THE SKIN TWICE DAILY - 7 Genoveva Schmid codeine-guaifenes in 10-100 mg/5 mL liquid active TAKE 10 ML BY MOUTH EVERY 4 HOURS NEEDED Genoveva Schmid azithromycin 250 mg tablet active Genoveva Schmid prednisone 20 mg tablet active TAKE 2 TABLETS BY MOUTH EVERY DAY WITH FOOD FOR 5 DAYS Genoveva Schmid tamsulosin 0.4 mg capsule active TAKE 1 CAPSULE BY MOUTH EVERY DAY Genoveva Schmid SOCIAL HISTORY Date Observation Value Provider smoking status Former smoker Wagner Morris MD social history reviewed E&M revi ewed - no changes required Wagner Morris MD social history E&M S moking History: Aram rubin is a former smoker. Tonja Mauro social history reviewed E&M revi ewed - no changes required Tonja Mauro smoking status Former smoker Lisbet Mendietaprashant riley social history E&M S moking History: Aram rubin is a former smoker. Wagner Morris MD smoking status Former smoker Genoveva Jerson hurst social history reviewed E&M revi ewed - no changes required Tonja Mauro social history E&M S moking History: Aram rubin is a former smoker. Wagner Morris MD social history reviewed E&M revi ewed - no changes required Wagner Morris MD smoking status Former smoker Wagner Morris MD INSURANCE PROVIDERS Payer name Policy type / Coverage type [place] red green party ID [employer] [facility] ADVANTAGE PLAN 2 (HMO-POS) Medicare [id number] HEALTHC[employer] AND FAMILY SERVICES Medicaid 1 [id number] ADVANCE DIRECTIVES Name Date DISCUSSED - NO DECISION MADE TREATMENT PLAN Date Name Performer [id number],S,may be contri buting to SOB Wagner Morris MD [id number],S, O rders: 9 9215 HIGH 40-54min (CPT-55594) A rterial Duplex Bi-Lower EX (CPT-29056) V enous Doppler Bilateral LE - Reflux (CPT-41166) C omplete Echo (CPT-57445) F VC - 16373 (68777) F RC - 51985 (76802) D LCO - 87950 (35830) N M, Lung Perfusion (CPT-19940) Wagner Morris MD [id number],S,C ontinues to have SOB, also complains of increased pain and swelling in the legs, We will obtain arterial and venous duplex of legs. Echo, VQ scan to rule out chronic PE and PFTs. Wagner Morris MD [id number],S, Wagner Morris MD [id number],W,C ontinues to have SOB, also complains of increased pain and swelling in the legs, We will obtain arterial and venous duplex of legs. Echo, VQ scan to rule out chronic PE and PFTs. Wagner Morris MD [id number],W,c omplains of increased pain and swelling in the legs, We will obtain arterial and venous duplex of legs. Echo, VQ scan to rule out chronic PE and PFTs. Wagner Morris MD [id number],C,C T angio showed near complete resolution of his PE. SOB has improved. Recommended he continue his Xarelto. The pt stated he had MRI of his liver and was told it was normal. Tonja Mauro [id number],C,C T angio showed near complete resolution of his PE. SOB has improved. Recommended he continue his Xarelto. The pt stated he had MRI of his liver and was told it was normal. Tonja Mauro [id number],C,T he pt reports some improvement of SOB. Echo showed EF of 45% with mild dilatation of the RV. Tonja Mauro [id number],C, Insurance denies CT angio, will ask them to approve since they need to know if he has persistent thrombus in the pulmonary artery Tonja Mauro [id number],C,V enous duplex showed venous insufficiency but negative for DVT. Insurance denies CT angio, will ask them to approve since they need to know if he has persistent thrombus in the pulmonary artery Tonja Mauro [id number],C,T he pt reports some improvement of SOB. Echo showed EF of 45% with mild dilatation of the RV.. Insurance denies CT angio, will ask them to approve since they need to know if he has persistent thrombus in the pulmonary artery Tonja Mauro [id number],C,P t was admitted to [facility] in March 2021 for Covid, developed a DVT and large saddle PE. Rx with anticoagulation. He continues to have SOB with minimal exertion. May have significant residual thrombus in the pulmonary arteries. W ill obtain CT angio, echo, and venous duplex. Continue Xarelto. Based on results will consider possible thrombectormy Tonja Mauro [id number],C,P t was admitted to [facility] in March 2021 for Covid, developed a DVT and large saddle PE. Rx with anticoagulation. He continues to have SOB with minimal exertion. May have significant residual thrombus in the pulmonary arteries. W ill obtain CT angio, echo, and venous duplex. Continue Xarelto. Based on results will consider possible thrombectormy T he following medications were removed from the medication list: Warfarin 5 Mg Tablet (Warfarin) ..... Take 1 tablet by mouth every evening...inr on 03/23 Enoxaparin 120 Mg/0.8 Ml Syringe (Enoxaparin) ..... Inject 120 mg under the skin twice daily Tonja Mauro [id number],C,P t was admitted to [facility] in March 2021 for Covid, developed a DVT and large saddle PE. Rx with anticoagulation. He continues to have SOB with minimal exertion. May have significant residual thrombus in the pulmonary arteries. W ill obtain CT angio, echo, and venous duplex. Continue Xarelto. Based on results will consider possible thrombectormy Tonja Mauro Cardiology:may be contributing t o SOB Wagner Morris MD Cardiology: O rders: 9 9215 HIGH 40-54min (CPT-69768) A rterial Duplex Bi-Lower EX (CPT-42029) V enous Doppler Bilateral LE - Reflux (CPT-42806) C omplete Echo (CPT-98111) F VC - 56399 (44649) F RC - 13253 (97093) D LCO - 99866 (95075) N M, Lung Perfusion (CPT-35947) Wagner Morris MD Cardiology:Continues to have SOB, also complains of increased pain and swelling in the legs, We will obtain arterial and venous duplex of legs. Echo, VQ scan to rule out chronic PE and PFTs. Wagner Morris MD Cardiology Wagner Morris MD Cardiology:Continues to have SOB, also complains of increased pain and swelling in the legs, We will obtain arterial and venous duplex of legs. Echo, VQ scan to rule out chronic PE and PFTs. Wagner Morris MD Cardiology:complains of increased pain and swelling in the legs, We will obtain arterial and venous duplex of legs. Echo, VQ scan to rule out chronic PE and PFTs. Wagner Morris MD Cardiology:CT angio showed near complete resolution of his PE. SOB has improved. Recommended he continue his Xarelto. The pt stated he had MRI of his liver and was told it was normal. Tonja Mauro Cardiology:CT angio showed near complete resolution of his PE. SOB has improved. Recommended he continue his Xarelto. The pt stated he had MRI of his liver and was told it was normal. Tonja Mauro Cardiology:The pt re ports some improvement of SOB. Echo showed EF of 45% with mild dilatation of the RV. Tonja Mauro Cardiology: Insuranc e denies CT angio, will ask them to approve since they need to know if he has persistent thrombus in the pulmonary artery Tonja Vannmarifer Cardiology:Venous du plex showed venous insufficiency but negative for DVT. Insurance denies CT angio, will ask them to approve since they need to know if he has persistent thrombus in the pulmonary artery Tonja Vannmarifer Cardiology:The pt re ports some improvement of SOB. Echo showed EF of 45% with mild dilatation of the RV.. Insurance denies CT angio, will ask them to approve since they need to know if he has persistent thrombus in the pulmonary artery Tonja Vannmarifer Cardiology Needs HPI :Pt was admitted to [facility] in March 2021 for Covid, developed a DVT and large saddle PE. Rx with anticoagulation. He continues to have SOB with minimal exertion. May have significant residual thrombus in the pulmonary arteries. W ill obtain CT angio, echo, and venous duplex. Continue Xarelto. Based on results will consider possible thrombectormy Tonja Mauro Cardiology Needs HPI :Pt was admitted to [facility] in March 2021 for Covid, developed a DVT and large saddle PE. Rx with anticoagulation. He continues to have SOB with minimal exertion. May have significant residual thrombus in the pulmonary arteries. W ill obtain CT angio, echo, and venous duplex. Continue Xarelto. Based on results will consider possible thrombectormy T he following medications were removed from the medication list: Warfarin 5 Mg Tablet (Warfarin) ..... Take 1 tablet by mouth every evening...inr on 03/23 Enoxaparin 120 Mg/0.8 Ml Syringe (Enoxaparin) ..... Inject 120 mg under the skin twice daily Tonja Vannmarifer Cardiology Needs HPI :Pt was admitted to [facility] in March 2021 for Covid, developed a DVT and large saddle PE. Rx with anticoagulation. He continues to have SOB with minimal exertion. May have significant residual thrombus in the pulmonary arteries. W ill obtain CT angio, echo, and venous duplex. Continue Xarelto. Based on results will consider possible thrombectormy Tonja Jacobsmarifer Date Name NM, Lung Perfusion DLCO - 86095 FRC - 48022 FVC - 86102 Complete Echo Venous Doppler Bilat eral LE - Reflux Arterial Duplex Bi-L ower EX CT Angio Chest (PE P rotocol) Venous Doppler Bilat eral LE CT Angio Chest (Aort a) CT Angio Chest (PE P rotocol) Venous Doppler Bilat eral LE - Reflux Complete Echo HISTORY OF PROCEDURES Procedure Date Procedure Name Provider Procedure Notes S tatus EKG Wagner Morris MD completed EKG Wagner Morris MD completed
== END 2024-07-20 14:40 | disposition home or self-care (01) ==
DX: R59.0 Localized enlarged lymph nodes (principal)
CPT/HCPCS: 76536